=== PATIENT | male | born 1950 | race Caucasian/White ===

== ENCOUNTER 2022-11-08 15:47 | Outpatient (CLI) | payer OTHER, SELFPAY ==
[2022-11-08 12:50] LABS: Albumin* 3.7 g/dL (3.3-5.0)
[2022-11-08 12:51] LABS: Chloride* 105 mmol/L (96-114); Sodium* 137 mmol/L (135-149)
[2022-11-08 12:53] LABS: Aspartate Amino Transferase* 21 U/L (12-35); Bilirubin Total* 0.6 mg/dL (0.1-1.5); Blood Urea Nitrogen* 18 mg/dL (7-30); Carbon Dioxide* 26 mmol/L (20-32); Cholesterol* 122 mg/dL (90-199); Creatinine* 0.9 mg/dL (0.5-1.5); Estimated Glomerular Filt Rate 91 ml/min; Total Protein* 6.4 g/dL (6.0-8.3)
[2022-11-08 12:54] LABS: Alanine Aminotransferase* 17 U/L (4-50); Alkaline Phosphatase* 106 U/L (40-150); Calcium* 8.6 mg/dL (8.4-10.6); Glucose* 101 mg/dL (60-115); HDL Cholesterol* 46 mg/dL (>=40); LDL Cholesterol Calculated 59 mg/dL (<100); Potassium* 5.3 mmol/L (3.6-5.1); Triglycerides* 87 mg/dL (40-149)
[2022-11-08 22:37] LABS: Creatinine Urine 124.6 mg/dL
[2022-11-09 02:45] LABS: Microalbumin Creatinine Ratio 220 mg/g (0-30); Microalbumin Urine 28 mg/dL
== END 2022-11-08 15:48 | disposition home or self-care (01) ==
PROVIDERS: PCP Family Medicine; Visit Provider Family Medicine
DX: Z00.00 Encounter for general adult medical examination without abnormal findings (principal); E11.9 Type 2 diabetes mellitus without complications; E78.5 Hyperlipidemia, unspecified; D63.8 Anemia in other chronic diseases classified elsewhere; I10 Essential (primary) hypertension; Z12.5 Encounter for screening for malignant neoplasm of prostate
CPT/HCPCS: 80053; 80061; 82043; 82570; 84153

== ENCOUNTER 2023-09-08 10:26 | Outpatient (CLI) | payer OTHER, SELFPAY | END 2023-09-08 10:27 | disposition home or self-care (01) | LOC: LKVREF 10:27 | PROVIDERS: PCP Family Medicine; Visit Provider Family Medicine | DX: I10 Essential (primary) hypertension (principal); E11.9 Type 2 diabetes mellitus without complications; M05.79 Rheumatoid arthritis with rheumatoid factor of multiple sites without organ or systems involvement; D63.8 Anemia in other chronic diseases classified elsewhere; Z79.899 Other long term (current) drug therapy | CPT/HCPCS: 80048; 85025 ==

== ENCOUNTER 2023-12-18 15:19 | Outpatient (CLI) | payer OTHER, SELFPAY | END 2023-12-18 15:20 | disposition home or self-care (01) | PROVIDERS: PCP Family Medicine; Visit Provider Family Medicine | DX: Z00.00 Encounter for general adult medical examination without abnormal findings (principal); D63.8 Anemia in other chronic diseases classified elsewhere; E78.5 Hyperlipidemia, unspecified; I25.10 Atherosclerotic heart disease of native coronary artery without angina pectoris; E11.9 Type 2 diabetes mellitus without complications; M05.79 Rheumatoid arthritis with rheumatoid factor of multiple sites without organ or systems involvement; Z79.899 Other long term (current) drug therapy | CPT/HCPCS: 80061; 80076; 83880; G0103 ==

== ENCOUNTER 2023-12-29 12:32 | Outpatient (CLI) | payer OTHER, SELFPAY ==
--- NOTE | 2023-12-29 13:00 | CRLHL7_ITS ---
For Patients: As a result of the Century Cures Act, medical imaging exams and procedure reports are released immediately into your electronic medical record. You may view this report before your referring provider. If you have questions, please contact your health care provider. Examination: US abdominal aorta Indication: Abdominal aortic aneurysm screening. Technique: Blackmon scale and color Doppler images of the aorta and common iliac arteries are obtained. Comparison: None Findings: Proximal aorta: 2.2 x 2.8 cm Mid aorta: 2.0 x 2.0 cm Distal aorta: 2.5 x 2.6 cm Right common iliac artery: 1.0 cm Left common iliac artery: 1.0 cm Recommended imaging interval for ectatic aorta: 2.5-2.9 cm: 5 years Impression: No abdominal aortic aneurysm within the visualized aorta. Dictated by Wale Carbajal MD @ 12/29/2023 3:59:20 PM (Electronically Signed)
== END 2023-12-29 12:33 | disposition home or self-care (01) ==
PROVIDERS: PCP Family Medicine; Visit Provider Family Medicine
DX: I25.10 Atherosclerotic heart disease of native coronary artery without angina pectoris (principal); I34.0 Nonrheumatic mitral (valve) insufficiency; Z13.6 Encounter for screening for cardiovascular disorders
CPT/HCPCS: 76706; 93306

== ENCOUNTER 2024-01-01 07:57 | Outpatient (RCR) | payer OTHER, SELFPAY ==
[2024-01-01] MEDS: SODIUM CHLORIDE 0.9 % (FLUSH) 10 ML SYRINGE IVF (08:42)
[2024-01-01] MEDS: REGADENOSON 0.4 MG/5 ML SYRINGE IVP (08:42)
[2024-01-01 11:22] VITALS: BP 127/72; PULSE 81
--- NOTE | 2024-01-01 11:40 | W.PM.STED ---
Stress Test Note Date Date of test: 01/01/24 Providers Primary care provider: Saúl Javier Stress test physician: Jameson Arceo Stress Test Note Stress test ordered: Lexiscan Indication for test: Chest pain Stress test medicine: Lexiscan Results discussion: Patient is a very nice 73-year-old gentleman who presents here for the above test, on referral by his primary care physician. Cardiac stress test medical history form is reviewed entirely. I did speak with him about the risks benefits and side effects of the test and he would like to proceed. Pretest EKG shows normal sinus rhythm, ventricular rate is 73, blood pressure 152/77, some mild ST wave irregularities are noted inferiorly. Standard infusion of Lexiscan is done over 5 minute. He tolerated this well and there were no complications in fact he had no complaints. His maximum heart rate was 95 which is a target predicted of only 76%. Review of the tracing showed no evidence of dysrhythmias, there was no ST wave changes suggestive of ischemia. He recovered normal. Impression: Negative electrographic portion of Lexiscan Follow up suggested: Await nuclear images these will be read by nuclear Medicine, clinical correlation with this will be needed. He left this testing facility back to baseline, there were no complication.
== END 2024-01-13 23:59 | disposition home or self-care (01) ==
LOC: STRESS 07:57
PROVIDERS: PCP Family Medicine; Visit Provider Family Medicine
DX: R07.9 Chest pain, unspecified (principal); I25.10 Atherosclerotic heart disease of native coronary artery without angina pectoris
CPT/HCPCS: 78452; 93016; 93017; A9500; J2785

== ENCOUNTER 2024-02-20 10:15 | Outpatient (CLI) | payer OTHER, SELFPAY | END 2024-02-20 10:16 | disposition home or self-care (01) | PROVIDERS: PCP Family Medicine; Visit Provider Family Medicine | DX: M05.79 Rheumatoid arthritis with rheumatoid factor of multiple sites without organ or systems involvement (principal); D63.8 Anemia in other chronic diseases classified elsewhere; E11.9 Type 2 diabetes mellitus without complications; Z79.84 Long term (current) use of oral hypoglycemic drugs | CPT/HCPCS: 82043; 82570; 82728; 83540 ==

== ENCOUNTER 2024-11-04 11:05 | Outpatient (CLI) | payer OTHER, SELFPAY | END 2024-11-04 11:06 | disposition home or self-care (01) | PROVIDERS: PCP Family Medicine; Visit Provider Family Medicine | DX: I10 Essential (primary) hypertension (principal); I25.10 Atherosclerotic heart disease of native coronary artery without angina pectoris | CPT/HCPCS: 80053 ==

== ENCOUNTER 2025-01-03 15:40 | Outpatient (CLI) | payer OTHER, SELFPAY | END 2025-01-03 15:41 | disposition home or self-care (01) | LOC: LKVREF 16:31 | PROVIDERS: PCP Family Medicine; Visit Provider Family Medicine | DX: J06.9 Acute upper respiratory infection, unspecified (principal); D63.8 Anemia in other chronic diseases classified elsewhere | CPT/HCPCS: 82607; 82728 ==

== ENCOUNTER 2025-02-03 08:36 | Outpatient (CLI) | payer OTHER, SELFPAY | END 2025-02-03 08:37 | disposition home or self-care (01) | PROVIDERS: PCP Family Medicine; Visit Provider Family Medicine | DX: I10 Essential (primary) hypertension (principal); E78.5 Hyperlipidemia, unspecified; Z12.5 Encounter for screening for malignant neoplasm of prostate; D64.9 Anemia, unspecified | CPT/HCPCS: 80053; 80061; 82043; 82570; G0103 ==

== ENCOUNTER 2025-02-11 08:48 | Outpatient (CLI) | payer OTHER, SELFPAY | END 2025-02-11 08:49 | disposition home or self-care (01) | LOC: NFLDREF 02-14 03:43 | PROVIDERS: PCP Family Medicine; Referring Provider Family Medicine; Visit Provider Podiatrist | DX: E11.9 Type 2 diabetes mellitus without complications (principal); I10 Essential (primary) hypertension | CPT/HCPCS: 82043; 82570 ==

== ENCOUNTER 2025-08-29 11:59 | Outpatient (CLI) | payer OTHER, SELFPAY | END 2025-08-29 12:00 | disposition home or self-care (01) | LOC: NFLDREF 08-30 18:37 | PROVIDERS: PCP Family Medicine; Referring Provider Family Medicine; Visit Provider Family Medicine | DX: I65.29 Occlusion and stenosis of unspecified carotid artery (principal); I73.9 Peripheral vascular disease, unspecified | CPT/HCPCS: 80048 ==

== ENCOUNTER 2025-09-05 10:29 | Outpatient (CLI) | payer OTHER, SELFPAY ==
--- NOTE | 2025-09-05 10:45 | CRLHL7_ITS ---
For Patients: As a result of the Cures Act, medical imaging exams and procedure reports are released immediately into your electronic medical record. You may view this report before your referring provider. If you have questions, please contact your health care provider. BILATERAL CAROTID ULTRASOUND CLINICAL HISTORY: Carotid artery stenosis. History of right-sided ICA stent placement. TECHNIQUE: The carotid circulations and the vertebral arteries in the neck were examined with tellez-scale ultrasound, color-flow and Doppler spectral analysis. Degrees of stenosis were determined using SRU 2002 Consensus Panel Criteria. COMPARISON: Compared to prior study from November 16, 2019. FINDINGS: There is a stent now seen within the right proximal cervical ICA. There is continued flow velocity elevation within the right cervical ICA however this does not appear to be as pronounced as on the prior study. Plaque formation and flow velocity elevation seen within the proximal left cervical ICA. Antegrade flow within the vertebral arteries bilaterally. PEAK SYSTOLIC VELOCITY RIGHT: Subclavian A: 268.5 Distal CCA: 58.1. Mid CCA: 75.0. Proximal ICA: 131.9. Mid ICA: 177.7 Distal ICA: 151.5. ICA/CCA Ratio: 3.1. Vertebral artery: Antegrade. LEFT: RIGHT: Subclavian A: 239.3 Distal CCA: 89.6. Mid CCA: 77.4. Proximal ICA: 198.1. Mid ICA: 106.5 Distal ICA: 66.9. ICA/CCA Ratio: 2.2. Vertebral artery: Antegrade. IMPRESSION: 1. Evidence of stent within the proximal right cervical ICA with approximate 50-69 percent narrowing based on SRU Consensus Criteria. 2. Approximate 50-69 percent narrowing of the left cervical ICA. KERRI CHATMAN D.O. Neuroradiologist, [facility] Transcribed: 12:13 p.m. [email or web address] JR/Dictated by: Thomas Chatman MD @ 09/06/2025 10:34:00 AM (Electronically Signed)
== END 2025-09-05 10:30 | disposition home or self-care (01) ==
PROVIDERS: PCP Family Medicine; Visit Provider Family Medicine
DX: I65.29 Occlusion and stenosis of unspecified carotid artery (principal); I77.9 Disorder of arteries and arterioles, unspecified; I65.22 Occlusion and stenosis of left carotid artery
CPT/HCPCS: 93880

== ENCOUNTER 2025-11-10 11:49 | Outpatient (CLI) | payer OTHER, SELFPAY | END 2025-11-10 11:50 | disposition home or self-care (01) | LOC: LKVREF 11:51 | PROVIDERS: PCP Family Medicine; Visit Provider Family Medicine | DX: E87.5 Hyperkalemia (principal) | CPT/HCPCS: 80048 ==